=== PATIENT | female | born 1950 | race Caucasian/White ===

== ENCOUNTER → 2017-08-12 | Outpatient (CLI) | payer OTHER, MEDICARE ==
[~2017-08-12] MED LIST: CARV12.52 PO; CARV6.2512 PO; ENAL10TA PO; FURO-92 PO; HYDR-3240 PO; METF500T4 PO; SPIR25TA3 PO; WARF-36 PO
== END | disposition home or self-care (01) ==
LOC: CFH 11:31
PROVIDERS: ATTEND Nurse Practitioner Family
DX: M81.0 Age-related osteoporosis without current pathological fracture (principal); N95.9 Unspecified menopausal and perimenopausal disorder
CPT/HCPCS: 77080